=== PATIENT | male | born 1990 | race Caucasian/White ===

== ENCOUNTER 2016-10-08 12:00 | Emergency (ER) | payer OTHER ==
[~2016-10-08] VITALS: Ht 180.3 cm; Wt 101.4 kg
[2016-10-08 12:01] VITALS: BP 141/67
[2016-10-08] MEDS ORDERED: IBUP80TA PO (12:17)
[2016-10-08] MEDS ORDERED: NORCO, ANEXSIA 5/325MG TABLET (HYDROcodone/ACETAMINOPHEN) PO ONE (13:15)
--- NOTE | 2016-10-08 13:35 | REP ---
CT BRAIN WITHOUT CONTRAST: REASON: Trauma. PRIORS: None. TECHNIQUE: 4.5 mm contiguous transaxial sections were obtained from the skull base to the cerebral convexities with thin cuts through the posterior fossa without the administration of intravenous contrast. FINDINGS: The ventricles and sulci are consistent with the patient's age. There are no extra-axial fluid collections. There is no mass effect. The deep cerebral white matter is consistent with the patient's age. The orbital and petrous structures , cerebellopontine angles, and posterior fossa are unremarkable. The sella turcica, cavernous, and paracavernous structures are essentially unremarkable. The visualized portions of the paranasal sinuses and mastoid air cells are clear. Images of the skull base show no gross abnormality. IMPRESSION: Essentially unremarkable CT examination of the brain. ? Signed by Eleazar Lane DO 10/08/2016 02:18 P
--- NOTE | 2016-10-08 13:37 | REP ---
REASON: Pain the neck after trauma. Vertebral body height and alignment is within normal limits. The facet joints are well aligned bilaterally. The disc spaces are symmetric and well maintained. There is no cervical spine fracture. There is no abnormal paraspinal soft tissue swelling. 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 IMPRESSION: Unremarkable exam. Signed by Eleazar Lane DO 10/08/2016 02:18 P
--- NOTE | 2016-10-08 13:53 | REP ---
PA and lateral chest: There is no pneumothorax, hemothorax or pulmonary contusion. No fractures are identified. Lung jean are clear. Cardiac size is normal. The osmani, mediastinum, and bony thorax are unremarkable. Impression: Negative PA and lateral chest. Signed by Abilio Dimas MD 10/08/2016 01:44 P
[2016-10-08] MEDS ORDERED: ZANA4TAB PO (14:15)
[2016-10-08] MEDS ORDERED: NORCOTAB PO (14:15)
== END 2016-10-08 14:25 | disposition home or self-care (01) ==
LOC: M ED 13:38
DX: M54.2 Cervicalgia (principal); S00.90XA Unspecified superficial injury of unspecified part of head, initial encounter; R07.89 Other chest pain; V49.60XA Unspecified car occupant injured in collision with unspecified motor vehicles in traffic accident, initial encounter; Y92.410 Unspecified street and highway as the place of occurrence of the external cause; Y93.89 Activity, other specified; Y99.9 Unspecified external cause status